=== PATIENT | female | born 1955 | race Caucasian/White ===

== ENCOUNTER 2018-07-08 08:48 | Observation (INO) | payer OTHER ==
[~2018-07-08] VITALS: Ht 167.6 cm; Wt 66.5 kg
[2018-07-08] VITALS (34 sets, daily range): BP systolic 103–138; BP diastolic 61–88; PULSE 56–69; RESP 13–26; Ht 167.6 cm; Wt 66.5 kg
[~2018-07-08 08:48] MED LIST: APIX2.5T PO; ASPI-817 PO; CARV3.1260 PO; FURO20TA3 PO; IBUP-1541 PO; KEN25O TOP; LISI-313 PO; PANT40TA4 PO; QUET200T PO
[2018-07-08] MEDS ORDERED: APIX2.5T PO (10:09)
[2018-07-08] MEDS ORDERED: QUET200T PO (10:10)
[2018-07-08] MEDS ORDERED: PROPOFOL 200 MG INJ ONE (14:00)
[2018-07-08] MEDS ORDERED: SOD CHLORIDE 0.9% 1,000 ML IV SCH (14:00)
[2018-07-08] MEDS ORDERED: CEFAZOLIN 2 GM/50 ML (PMX) 50 ML IVPB ONE (14:00)
--- NOTE | 2018-07-08 14:29 | RADRPT ---
Vent Rate: 68 bpm RR Interval: 0 msec OK Interval: 162 msec QRS Duration: 110 msec QT Interval: 492 msec QTC Interval: 523 msec P-R-T [place]: 39 - 23 - 65 degrees Sinus rhythm with frequent premature ventricular complexes Possible Left atrial enlargement Prolonged QT Abnormal ECG Electronically Signed By: José Luis Lr
--- NOTE | 2018-07-08 14:33 | PREAC ---
Date/Time of Note Date/Time of Note DATE: 07/08/18 TIME: 14:30 Anesthesia Eval and Record Evaluation Time Pre-Procedure Interview DATE: 07/08/18 TIME: 14:30 Age 62 Sex female NPO: 8 hrs Preoperative diagnosis Lt breast CA Planned procedure Lt breast radical modify mastectomy Past Medical History Past Medical History: Includes Cardio: HTN, OR, CAD, CHF GI: GERD, Morbid obesity Surgery & Anesthesia Issues No known issue Meds Anticoagulation: Yes Beta Wang within 24 hr: No Reason Beta Wang not given: Pt. not on B-Wang Reported Medications Quetiapine Fumarate* (Seroquel*) 200 Mg Tablet, 200 MG PO BID, #60 TAB 07/08/18 Apixaban* (Eliquis*) 2.5 Mg Tablet, 2.5 MG PO BID, TAB 07/08/18 Discontinued Reported Medications Triamcinolone Acetonide* (Kenalog*) 0.025%-15GM Oint, 1 APPLIC TOP BID, #1 EA 05/20/18 Pantoprazole* (Pantoprazole*) 40 Mg Tablet.dr, 40 MG PO AC BREAKFAST, TAB 05/20/18 Aspirin* (Aspirin* EC) 81 Mg Tablet.dr, 81 MG PO DAILY, TAB 05/20/18 Quetiapine Fumarate* (Seroquel*) 200 Mg Tablet, 200 MG PO BID, #60 TAB 05/20/18 Ibuprofen* (Ibuprofen*) 400 Mg Tablet, 400 MG PO Q6H PRN for PAIN, TAB 05/20/18 Carvedilol* (Carvedilol*) 3.125 Mg Tablet, 3.125 MG PO BID, #60 TAB 05/20/18 Lisinopril* (Lisinopril*) 5 Mg Tablet, 5 MG PO DAILY, #30 TAB 05/20/18 Furosemide* (Furosemide*) 20 Mg Tablet, 20 MG PO BID, #30 TAB 05/20/18 Apixaban* (Eliquis*) 2.5 Mg Tablet, 2.5 MG PO BID, TAB 05/20/18 Current Medications Sodium Chloride 1,000 ml @ 75 mls/hr [id number] IV ; Start 07/08/18 at 14:00; Stop 07/09/18 at 03:19 Meds reviewed: Yes Allergies Coded Allergies: No Known Drug Allergies (Unverified Allergy, Unknown, 05/20/18) Allergies Reviewed: Yes Labs/Studies Labs Reviewed: Reviewed by anesthesiologist Result Diagram: 07/08/18 1013 07/08/18 1013 Laboratory Tests 07/08/18 10:13 test: N/A Studies: ECG Pre-procedure Exam Last vitals Vital Signs Date Temp Pulse Resp B/P (MAP) Pulse Ox O2 O2 Flow FiO2 Time Delivery Rate 07/08/18 97.5 62 16 138/70 100 Room Air 11:18 (92) Airway: Adequate mouth opening, Adequate thyromental dist Mallampati: Mallampati II Teeth: Normal Lung: Normal Heart: Abnormal (H/O CHF) ASA Physical Status ASA physical status: 4 Emergency: None Planned Anesthetic General/MAC: LMA Planned Pain Management Parenteral pain med Pre-operative Attestations Prior to commencing anesthesia and surgery, the patient was re-evaluated, there was verification of: *The patient's identity *The results of appropriate recent lab work and preoperative vital signs *The above evaluation not changing prior to induction *Anesthetic plan, risk benefits, alternative and complications discussed with patient/family; questions answered; patient/family understands, accepts and wishes to proceed. GUERO DOZIER MD Jul 08, 2018 14:33
[2018-07-08] MEDS ORDERED: MIDAZOLAM 1 MG/ML 2 ML INJ ONE (14:36)
--- NOTE | 2018-07-08 15:41 | SIPON ---
Date/Time of Note Date/Time of Note DATE: 07/08/18 TIME: 15:39 Operative Report Preoperative Diagnosis Recurrent left breast cancer Postoperative Diagnosis Same Operation/Procedure Performed Left modified radical mastectomy Surgeon see signature line photo studio assistant Dr Abreu Anesthesia: general Estimated blood loss: 10 - 50 ml's Transfusion Required none Specimen Left modified radical mastectomy specimen Grafts/Implants none Complications none GENI VORA MD Jul 08, 2018 15:41
[2018-07-08] MEDS ORDERED: NEOSTIGMINE 10 MG INJ ONE (15:57)
[2018-07-08] MEDS ORDERED: ROCURONIUM 50 MG INJ ONE (15:57)
[2018-07-08] MEDS ORDERED: LIDOCAINE 2% (SDV) 5 ML INJ ONE (15:57)
[2018-07-08] MEDS ORDERED: ETOMIDATE 20 MG INJ ONE (15:57)
[2018-07-08] MEDS ORDERED: GLYCOPYRROLATE 0.4 MG INJ ONE (15:57)
[2018-07-08] MEDS ORDERED: CEFAZOLIN 1 GM INJ ONE (15:57)
[2018-07-08] MEDS ORDERED: ONDANSETRON 4 MG INJ ONE (15:58)
--- NOTE | 2018-07-08 15:58 | OPR ---
DATE OF OPERATION: 07/08/2018 PREOPERATIVE DIAGNOSIS: Recurrent left breast cancer. POSTOPERATIVE DIAGNOSIS: Recurrent left breast cancer. PROCEDURE: Left modified radical mastectomy. ANESTHESIA: General. ANESTHESIOLOGIST: Jed Arredondo MD SURGEON: Sharath Mahoney MD STAFFING ACCOUNT MANAGER: Pa Abreu MD INDICATIONS FOR PROCEDURE: The patient is a 62-year-old female, somewhat debilitated. She has a pre vious history of invasive cancer of her left breast several years ago. At that time, she was treated at another institution and underwent breast conservation surgery and chemotherapy and radiation. Hwang bsequently, she developed a mass near her previous surgical incisional scar. Workup including biopsy revealed an invasive cancer. She was counseled as to need for mastectomy since she previously had r adiation. She consented and was scheduled for surgery. DESCRIPTION OF PROCEDURE: The patient was brought to the operating theater, placed under general ane sthesia. The left breast and axillary region was prepped and draped in usual sterile fashion. Plann ed elliptical incision was demarcated with marking pen widely around the nipple areolar complex inclu ding a significant portion of the overlying skin. The planned incision included area of the palpable mass consistent with cancer. The incision was then carried out with 15-blade scalpel. Subcutaneous tissue was dissected with cautery. Skin edges were then elevated with Allis Will clamps and skin f laps were created using cautery in a sequential fashion, first superiorly to the clavicle and then me dially to the sternal border, inferiorly to the inframammary fold and laterally until the latissimus dorsi muscle was identified throughout its course. Mastectomy then took place from medial to lateral using cautery. At the border of the pectoralis major muscle, the pectoralis minor muscle was identi fied. Clavipectoral fascia was incised. There was significant amount of scar tissue in the axilla r elated to previous axillary dissection. However, attempts were made to perform a level 1 dissection. This was accomplished with the LigaSure device. Specimen was then transected, oriented and sent fo r permanent pathologic analysis. The wound was irrigated. Minimal bleeding was controlled with caut alexus. Two #10 flat Chuy-Small drains were then brought through the left mid axillary line. One wa s cut to size and laid within the axilla. The other was cut to size and laid over the pectoralis jeannine or muscle. Both drains were secured in place with 2-0 nylon sutures in the standard fashion. The sk in was then reapproximated with a deep dermal layer of 4-0 Vicryl sutures in interrupted fashion, fol lowed by final skin approximation with skin herson. The patient tolerated the procedure well. The estimated blood loss was 50 mL. There were no complications and the patient was transported in stabl e condition to the recovery room where circumferential compression dressing was applied. Dictated By: SHARATH FALLON/LOLA Conf#: [id number] DID#: [id number]
[2018-07-08] MEDS ORDERED: ACETAMINOPHEN 1000MG/100ML IV 100 ML IVPB PRN (16:00)
[2018-07-08] MEDS ORDERED: ONDANSETRON 4 MG INJ IV PRN ×2 (16:00→16:30)
[2018-07-08] MEDS ORDERED: KETOROLAC 30 MG INJ ONE (16:03)
--- NOTE | 2018-07-08 16:17 | PAC ---
Date/Time of Note Date/Time of Note DATE: 07/08/18 TIME: 16:16 Post-Anesthesia Notes Post-Anesthesia Note Last documented vital signs Vital Signs Date Temp Pulse Resp B/P (MAP) Pulse Ox O2 O2 Flow FiO2 Time Delivery Rate 07/08/18 98.7 16:14 07/08/18 62 16 138/70 100 Room Air 11:18 (92) Activity: WNL Respiratory function: WNL Cardiovascular function: WNL Mental status: Baseline Pain reasonably controlled: Yes Hydration appropriate: Yes Nausea/Vomiting absent: Yes Comments BP:126/67, P:68, Spo2:100%, T:98,7 GUERO DOZIER MD Jul 08, 2018 16:17
[2018-07-08] MEDS ORDERED: ATROPINE 1 MG/10 ML SYRINGE IV PRN (16:30)
[2018-07-08] MEDS ORDERED: DIPHENHYDRAMINE 50 MG INJ IV PRN (16:30)
[2018-07-08] MEDS ORDERED: hydrALAzine 20 MG INJ IV PRN (16:30)
[2018-07-08] MEDS ORDERED: METOCLOPRAMIDE 10 MG INJ IV PRN (16:30)
[2018-07-08] MEDS ORDERED: HYDROmorphONE 1 MG/5 ML IV SYRINGE IV PRN ×2 (16:30)
[2018-07-08] MEDS: FENTAnyl 50 MCG/ML VIAL IV PRN ×4 (16:32→16:58)
[2018-07-08] MEDS: D5W-0.45 NACL + KCL 20 MEQ 1,000 ML IV SCH ×2 (20:12→23:41)
[2018-07-08] MEDS: morphine 2 MG INJ IV PRN (20:13)
[2018-07-08] MEDS ORDERED: HYDROCODONE/APAP (5/325) TAB PO PRN (22:30)
[2018-07-09] MEDS: morphine 2 MG INJ IV PRN ×6 (00:13→23:05)
--- NOTE | 2018-07-09 00:59 | HP ---
DATE OF ADMISSION: 07/08/2018 CHIEF COMPLAINT AND HISTORY OF PRESENT ILLNESS: The patient is a 62-year-old female well known to me from previous admission. The patient has a history of hypertension, DVT, cardiomyopathy with EF of 30%. 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 The patient is status post left lumpectomy followed by chemorad iation. The patient was supposed to get a modified radical mastectomy on the left side; however, the patient had an episode of left leg cellulitis and therefore surgery was deferred. The patient was b rought in to hospital today and underwent left modified radical mastectomy. Postoperatively, the pat ient did have significant pain and has been admitted for evaluation and management. The patient latoya es any history of headache, dizziness, syncope. No history of abdominal pain. No history of nausea, vomiting or diarrhea. No history of focal weakness. No history of numbness or tingling in any extr emity. REVIEW OF SYSTEMS: Other than postoperative pain, rest of review of systems unremarkable. PAST MEDICAL HISTORY: As stated above. ALLERGIES: NONE. SOCIAL HISTORY: The patient smoked about a half pack per day. No history of alcohol abuse. FAMILY HISTORY: The patient's 2 sons have history of DVT. PHYSICAL EXAMINATION: GENERAL: The patient is awake, alert. VITAL SIGNS: Temperature 98.5, pulse 60, respirations 16, blood pressure 115/74, O2 saturation 100% on 2 liters nasal cannula. HEENT: Atraumatic, normocephalic. Conjunctivae normal. Oropharynx clear. NECK: Supple. No thyromegaly. CHEST: Fairly clear. CARDIOVASCULAR: S1, S2 normal. ABDOMEN: Soft, nondistended, nontender, no palpable mass. EXTREMITIES: No edema, clubbing, cyanosis. NEUROLOGIC: The patient is awake, alert, fairly oriented with no gross focal deficit. LABORATORY DATA: Done this morning, WBC 5.4, hemoglobin 12.5, platelet 157. Sodium 143, potassium 3 .4, BUN 11, creatinine 0.8. Liver enzymes normal. IMPRESSION: 1. Recurrent left breast cancer status post chemoradiation in the past. Today, she underwent left m odified radical mastectomy. 2. Cardiomyopathy with ejection fraction of 30%. 3. History of left femoral and popliteal vein DVT, status post stent placement in left common femora l vein. PLAN: The patient admitted on medical floor. The patient will be started on clear liquid diet, whic h will be advanced as tolerated. The patient will be continued on Seroquel as at home. We will hold off on Eliquis until cleared by surgery. We will use SCD for DVT prophylaxis. For pain control, th e patient will be given Tylenol, [place] and IV morphine depending upon severity of the pain. Further recommendation will depend on patient's hospital course. The patient is requesting nicotine patch. Dictated By: MISSAEL MADISON/LOLA Conf#: [id number] DID#: [id number]
[2018-07-09 03:44] VITALS: BP 109/78; PULSE 57; RESP 16
[2018-07-09] MEDS: D5W-0.45 NACL + KCL 20 MEQ 1,000 ML IV SCH (04:06)
[2018-07-09] MEDS: FUROSEMIDE 20 MG TAB PO SCH ×2 (05:51→18:05)
[2018-07-09 05:52] VITALS: BP 119/77; PULSE 61
[2018-07-09 07:55] VITALS: BP 119/80; PULSE 63; RESP 17
[2018-07-09] MEDS: NICOTINE (14 MG/24 HR) PATCH TRANSDERM SCH (08:58)
[2018-07-09] MEDS: QUETIAPINE 100 MG TAB PO SCH ×2 (08:58→21:31)
[2018-07-09] MEDS ORDERED: morphine 2 MG INJ IV PRN (13:30)
[2018-07-09 14:10] VITALS: BP 121/75; PULSE 71; RESP 18
[2018-07-09] MEDS: LORAZEPAM 0.5 MG TAB PO SCH ×2 (14:16→21:31)
--- NOTE | 2018-07-09 15:17 | PN ---
DATE: 07/09/2018 Postop day #1 status post left breast modified radical mastectomy for recurrent cancer. SUBJECTIVE: Does not have any specific complaint except some pain that has required her to ask frequent pain medication. OBJECTIVE: GENERAL: Awake, alert, oriented. VITAL SIGNS: Temperature maximum 98.5, heart rate fluctuating between 67 and 63, respirations 17, blood pressure 109/78, saturation 98% on 2 liters nasal cannula. HEART: Regular. LUNGS: Clear. ABDOMEN: Soft. Dressing is slightly tight but the patient likes it and she wanted to be left like that. She feels more comfortable, but of course she has had too much pain since operation. EXTREMITIES: The patient's left leg which had cellulitis in the past has DVT. She was admitted for that matter actually 3 to 4 weeks ago in this hospital. Now, it looks quite better and there is no pitting edema. There is no cellulitis. SCDs are on both legs. The patient has been on liquids at home, but it was discontinued and stopped 4 days prior to operation. Today is postop day #1, may start liquids as of tomorrow. The Chuy-Small drainage has been totally 7 mL from the time of operation yesterday until to 7:00 today morning and the one which is in the bag right now is serosanguineous and more actually sanguineous. We will keep the patient 1 more day to control the pain and hopefully can discharge the patient home by tomorrow. Dictated By: MILADY ODEN MD PS/NTS Conf#: [id number] DID#: [id number] CC: GENI VORA MD; MISSAEL MYLES MD;*EndCC* MTDD
--- NOTE | 2018-07-09 17:45 | PN ---
Date/Time of Note Date/Time of Note DATE: 07/09/18 TIME: 17:33 Assessment/Plan VTE Prophylaxis Risk score (from Ns)>0 risk: 6 SCD applied (from Ns): No SCD contraindicated: DVT Pharmacological prophylaxis: apixaban Lines/Catheters IV [facility] Peripheral IV Urinary Cath still in place: No Assessment/Plan Hospital Course Patient's complaints of pain and weakness continue Dante and morphine as needed for pain, monitor NONA output. Assessment/Plan -Recurrent left breast cancer, status post chemoradiation in the past. S/p left modified radical mastectomy by Dr. Mahoney. -Cardiomyopathy with ejection fraction of 30%. Continue Lasix. -History of left femoral and popliteal vein DVT. Patient can be restarted on Eliquis tomorrow. -History of stent placement in the left CFV -Long-term history of smoking, continue nicotine patch. Further recommendations based on clinical course. Plan of care discussed with Dr. Yanez. Result Diagram: 07/08/18 1013 07/08/18 1013 Exam/Review of Systems Exam Vitals Vital Signs Date Temp Pulse Resp B/P (MAP) Pulse Ox O2 O2 Flow FiO2 Time Delivery Rate 07/09/18 97.9 71 18 121/75 92 Room Air 14:10 (90) 07/09/18 2.0 03:44 Intake and Output 07/08/18 07/08/18 07/09/18 1515:00 23:00 07:00 IntakeIntake Total 1000 ml 220 ml 1175 ml OutputOutput Total 25 ml 70 ml BalanceBalance 975 ml 220 ml 1105 ml Constitutional: alert, oriented Neck: supple Respiratory: clear to auscultation Cardiovascular: nl pulses Gastrointestinal: soft, non-tender Musculoskeletal: nl extremities to inspection Extremities: normal pulses Skin: nl turgor, other (Status post left radical mastectomy) Medications Medication Current Medications Ondansetron HCl (Zofran Inj) 4 mg Q6H PRN IV NAUSEA AND/OR VOMITING; Start 07/08/18 at 16:00 Quetiapine Fumarate (Seroquel) 200 mg BID PO Last administered on 07/09/18at 08:58; Admin Dose 200 MG; Start 07/09/18 at 09:00 Acetaminophen/ Hydrocodone Bitart (Dante (5/325)) 1 tab Q4H PRN PO MODERATE PAIN LEVEL 4-6; Start 07/08/18 at 22:30 Nicotine (Nicoderm 14 Mg/ 24hr) 1 patch DAILY TRANSDERM ; Start 07/09/18 at 09:00 Furosemide (Lasix) 20 mg BID DIURETICS PO Last administered on 07/09/18at 05:51; Admin Dose 20 MG; Start 07/09/18 at 06:00 Lorazepam (Ativan) 0.5 mg TID PO Last administered on 07/09/18at 14:16; Admin Dose 0.5 MG; Start 07/09/18 at 13:30 Morphine Sulfate (morphine) 2 mg Q4H PRN IV PAIN; Start 07/09/18 at 18:00 EUGENE WATKINS Jul 09, 2018 17:43
[2018-07-09] MEDS ORDERED: POTASSIUM CHLORIDE 20 MEQ POWDER FOR ORAL SOLN PO ONE (18:30)
[2018-07-09 20:00] VITALS: BP 156/81; PULSE 70; RESP 18
[2018-07-09] MEDS: APIXABAN 5 MG TABLET PO SCH (21:34)
[2018-07-10 02:00] VITALS: BP 144/93; PULSE 68; RESP 19
[2018-07-10] MEDS: morphine 2 MG INJ IV PRN ×3 (03:08→12:22)
[2018-07-10] MEDS: FUROSEMIDE 20 MG TAB PO SCH (06:55)
[2018-07-10 07:16] VITALS: BP 136/88; PULSE 79; RESP 18
[2018-07-10] MEDS: APIXABAN 5 MG TABLET PO SCH (08:48)
[2018-07-10] MEDS: QUETIAPINE 100 MG TAB PO SCH (08:49)
[2018-07-10] MEDS: LORAZEPAM 0.5 MG TAB PO SCH ×2 (08:49→13:37)
[2018-07-10] MEDS: NICOTINE (14 MG/24 HR) PATCH TRANSDERM SCH (09:00)
[2018-07-10] MEDS ORDERED: LAS20 PO (14:12)
[2018-07-10] MEDS ORDERED: DOCU-144 PO (14:12)
[2018-07-10] MEDS ORDERED: LORA-441 PO (14:12)
[2018-07-10] MEDS ORDERED: HYDR-3601 PO (14:12)
--- NOTE | 2018-07-10 14:13 | DS ---
Date/Time of Note Date/Time of Note DATE: 07/10/18 TIME: 14:13 Discharge Summary Admission/Discharge Info Admit Date/Time Jul 09, 2018 at 07:56 Discharge Date/Time Home Meds Active Scripts Docusate Sodium* (Colace*) 100 Mg Capsule, 100 MG PO BID, #20 CAP Prov:JUAN GREEN 07/10/18 Hydrocodone Bit-Acetaminophen (Hydrocodone Bit-APAP) 5-325MG Tablet, 1 TAB PO Q6 PRN for MODERATE PAIN LEVEL 4-6, #20 TAB Prov:JUAN GREEN 07/10/18 Lorazepam* (Ativan*) 0.5 Mg Tablet, 0.5 MG PO TID, #21 TAB Prov:JUAN GREEN 07/10/18 Furosemide (Lasix) 20 Mg Tab, 20 MG PO BID DIURETICS for 30 Days, TAB Prov:JUAN GREEN 07/10/18 Reported Medications Quetiapine Fumarate* (Seroquel*) 200 Mg Tablet, 200 MG PO BID, #60 TAB 07/08/18 Apixaban* (Eliquis*) 2.5 Mg Tablet, 2.5 MG PO BID, TAB 07/08/18 Discontinued Reported Medications Triamcinolone Acetonide* (Kenalog*) 0.025%-15GM Oint, 1 APPLIC TOP BID, #1 EA 05/20/18 Pantoprazole* (Pantoprazole*) 40 Mg Tablet.dr, 40 MG PO AC BREAKFAST, TAB 05/20/18 Aspirin* (Aspirin* EC) 81 Mg Tablet.dr, 81 MG PO DAILY, TAB 05/20/18 Quetiapine Fumarate* (Seroquel*) 200 Mg Tablet, 200 MG PO BID, #60 TAB 05/20/18 Ibuprofen* (Ibuprofen*) 400 Mg Tablet, 400 MG PO Q6H PRN for PAIN, TAB 05/20/18 Carvedilol* (Carvedilol*) 3.125 Mg Tablet, 3.125 MG PO BID, #60 TAB 05/20/18 Lisinopril* (Lisinopril*) 5 Mg Tablet, 5 MG PO DAILY, #30 TAB 05/20/18 Furosemide* (Furosemide*) 20 Mg Tablet, 20 MG PO BID, #30 TAB 05/20/18 Apixaban* (Eliquis*) 2.5 Mg Tablet, 2.5 MG PO BID, TAB 05/20/18 Primary Care Provider Not On Staff Doctor Pending Labs Laboratory Tests Test 07/10/18 04:35 White Blood Count 7.8 10^3/ul (4.8-10.8) Red Blood Count 4.01 10^6/ul (4.20-5.40) Hemoglobin 11.0 g/dl (12.0-16.0) Hematocrit 35.3 % (37.0-47.0) Mean Corpuscular Volume 88.0 fl (82.0-101.0) Mean Corpuscular Hemoglobin 27.4 pg (29.0-33.0) Mean Corpuscular Hemoglobin Concent 31.2 g/dl (32.0-37.0) Red Cell Distribution Width 21.1 % (11.5-14.5) Platelet Count 128 10^3/UL (140-415) Mean Platelet Volume 11.0 fl (7.4-10.4) Immature Granulocytes % 0.400 % (0.001-0.429) Neutrophils % 82.3 % (39.0-77.0) Lymphocytes % 7.8 % (15.0-51.0) Monocytes % 6.0 % (0.0-11.0) Eosinophils % 3.2 % (0.0-7.0) Basophils % 0.3 % (0.0-2.0) Nucleated Red Blood Cells % 0.0 /100WBC (0.0-0.0) Immature Granulocytes # 0.030 10^3/ul (0.0-0.031) Neutrophils # 6.4 10^3/ul (1.6-7.5) Lymphocytes # 0.6 10^3/ul (0.8-2.9) Monocytes # 0.5 10^3/ul (0.3-0.9) Eosinophils # 0.3 10^3/ul (0.0-0.5) Basophils # 0.0 10^3/ul (0.0-0.1) Nucleated Red Blood Cells # 0.0 10^3/ul (0.0-0.0) Sodium Level 137 mmol/L (135-144) Potassium Level 4.1 mmol/L (3.5-5.1) Chloride Level 103 mmol/L (97-110) Carbon Dioxide Level 26 mmol/L (21-31) Anion Gap 8 (5-13) Blood Urea Nitrogen 18 mg/dl (7-20) Creatinine 1.00 mg/dl (0.44-1.00) Est Glomerular Filtrat Rate mL/min 57 mL/min (>60) Glucose Level 113 mg/dl (70-220) Calcium Level 8.8 mg/dl (8.4-10.2) JUAN GREEN Jul 10, 2018 14:13
--- NOTE | 2018-07-10 14:14 | PDOCDIS ---
Discharge Instructions CONDITION [id number] Patient Condition: [id number] Stable HOME CARE INSTRUCTIONS: [id number] Diet Instructions: [id number] Regular ACTIVITY: [id number] Activity Restrictions: [id number] Slowly Increase Activity Rest between Activity Avoid heavy lifting Avoid Heavy Housework [id number] Bathing Restrictions: [id number] Shower FOLLOW UP/APPOINTMENTS Follow-up Plan FU with PMD X 1 WEEK FU W/SURGEON RECOMMENDED CALL 911 OR GO TO THE NEAREST HOSPITAL IF SYMPTOMS GET WORSE- PATIENT VERBALIZED UNDERSTANDING DISCHARGE INSTRUCTIONS DW DR MYLES/STAFF JUAN GREEN Jul 10, 2018 14:14
[2018-07-10 14:47] VITALS: BP 105/74; PULSE 79; RESP 20
--- NOTE | 2018-07-10 16:42 | PN ---
DATE: 07/10/2018 Postop day #2 status post left modified radical mastectomy for recurrent cancer of the left breast. SUBJECTIVE: Feels okay. No complaint. Has been out of bed and walk around and tolerating diet. OBJECTIVE: VITAL SIGNS: Temperature 98.9, heart rate 79, respiration 18, blood pressure 136/88, saturation 93% on room air. SKIN: Dressing is intact. It is not too tight. LABORATORY DATA: Electrolytes normal. BUN and creatinine normal. Hematology: WBC 7800 with 82% se gmented, hemoglobin 11, hematocrit 35.3. INPUT AND OUTPUT: Chuy-Small drain is still in place. Totally both they have drained [address] 24 hours. It is serosanguineous fluid. The patient was given instructions how to take care of the Chuy-Small drains, how to drain them, t o measure them every night and when she goes to Dr. Mahoney' office to take the measurement with her. The patient understands and she knows how to do it. Pain medication will be given prescription for t he patient. The patient can be discharged from surgical point of view to continue all medications th at she should take at home including Eliquis. Also, the patient should call Dr. Mahoney' office to ramona shepard appointment for followup. Dictated By: MILADY ODEN MD PS/NTS Conf#: [id number] DID#: [id number] CC: MISSAEL MYLES MD; GENI MAHONEY MD;*EndCC*
[2018-07-10] MEDS ORDERED: APIXABAN 5 MG TABLET PO SCH (21:00)
== END 2018-07-10 17:43 | disposition home or self-care (01) ==
LOC: SDS 08:48 → UNDOADMIN 15:43 → REC 15:43 → MS1 16:15 → REC 19:00 → MS1 19:00 → REC 07-09 07:56 → SDS 07-09 07:56 → MS1 07-09 10:08
PROVIDERS: ADMIT Surgery Surgical Oncology; ATTEND Surgery Surgical Oncology
DX: C50.212 Malignant neoplasm of upper-inner quadrant of left female breast (principal); E78.5 Hyperlipidemia, unspecified; I10 Essential (primary) hypertension; I42.9 Cardiomyopathy, unspecified; Z86.718 Personal history of other venous thrombosis and embolism
CPT/HCPCS: 19307; 71045; 80048; 80053; 85025; 85610; 85730; 88307; 93005; J0690; J1200; J1885; J2250; J2270; J2405; J3010; J3480; Z7500; Z7512; Z7610; 99217; G0378; J2710